=== PATIENT | male | born 1980 | race Caucasian/White ===

== ENCOUNTER 2024-05-27 05:03 | Emergency (ER) | payer OTHER, SELFPAY ==
--- OUTSIDE RECORDS SUMMARY | 2024-05-27 05:05 | XMS_ITS | Clinical Summary ---
Author Organization [facility] Address [address] [place] [address] Care Team Providers Care Corporate Director Of Human Resources Name Role Phone Unavailable Primary Care Provider Unavailabl e Social History Tobacco Use Types Packs/Day Years Used Date Smoking Tobacco: Never Assessed Sex and Gender Information Value Date Recorded Sex Assigned at Not on file Legal Sex Male 5:59 PM CDT Gender Identity Not on file Sexual Orientation Not on file Plan of Treatment Health Maintenance Due Date Last Done Comments Annual Physical 10/22/1982 Hepatitis C 10/22/1997 DTaP, Tdap and Td Vaccines ( 1 - Tdap) 10/22/1998 Hepatitis B Vaccines (1 of 3 - 19+ 3-dose series) 10/22/1998 COVID-19 Vaccine (2023-2 5 season) 2023 Influenza Adult (#1) 2023 HPV Vaccines Aged Out No longer eligi ble based on patient's age to complete this topic Meningococcal B Vaccine Aged Out No l onger eligible based on patient's age to complete this topic Meningococcal Vaccine Aged Out No adelaida jin eligible based on patient's age to complete this topic Pneumococcal Vaccine: Pediat rics (0 to 5 Years) and At-Risk Patients (6 to 64 Years) Aged Out No longer eligible b ased on patient's age to complete this topic RSV Immunizations Under 20 Months Aged Out No longer eligible based on patient's age to complete this topic
--- OUTSIDE RECORDS SUMMARY | 2024-05-27 05:05 | XMS_ITS | Referral Summary ---
Author Organization [facility] Address [address] [place] [address] Care Team Providers Care Advertising Editor Name Role Phone Cori Ashton PA-C Primary Care Provider [phone] Source Comments [facility],non-owned Affiliates and Associated Physician Practices is amultiple site organization consisting of ambulatory clinics and hospital sitesin [place], [place], [place] and [place]. This disclosure is being madepursuant to the Care Everywhere program and may not contain all information available regarding this patient. Last updated 17.[facility] Allergies No known active allergies Medications * Be aware that medications may not be up to date on this document. Alwaysverify current medications with the patient. Medication Sig Dispensed Refills Start Date End Date Status ibuprofen (MOTRIN) 600 MG tablet Take 1 tablet by mouth every 6 hours as needed for Pain 20 tablet 05/05/2018 Active Social History Tobacco Use Types Packs/Day Years Used Date Smoking Tobacco: Never Smokeless Tobacco: Never Alcohol Use Standard Drinks/Week Comments No 0 (1 standard drink = 0.6 oz pur e alcohol) Sex and Gender Information Value Date Recorded Sex Assigned at Not on file Gender Identity Not on file Sexual Orientation Not on file Last Filed Vital Signs Vital Sign Reading Time Taken Comments Blood Pressure 103/60 05/05/2018 7:13 PM SURGICAL RESIDENT Pulse 73 05/05/2018 7:13 PM SURGICAL RESIDENT Temperature 36.7 C (98.1 F) 05/05/2018 3:37 PM SURGICAL RESIDENT Respiratory Rate 18 05/05/2018 7:13 PM SURGICAL RESIDENT Oxygen Saturation 97% 05/05/2018 7:13 PM SURGICAL RESIDENT Inhaled Oxygen Concentration - - Weight 65.8 kg (145 lb) 05/05/2018 3:37 PM SURGICAL RESIDENT Height 170.2 cm (5' 7 ) 05/05/2018 3:37 PM SURGICAL RESIDENT Body Mass Index 22.71 05/05/2018 3:37 PM SURGICAL RESIDENT Plan of Treatment Not on file Care Teams Advertising Editor Relationship Specialty Start Date End Date Cori Ashton, PA-C PCP - General Physician Jeeper Operator 05/05/18
--- OUTSIDE RECORDS SUMMARY | 2024-05-27 05:05 | XMS_ITS | Clinical Summary ---
Author Organization [facility] Address [address] [place] [address] Care Team Providers Care Painter Foreman Name Role Phone Cori Ashton PA-C Primary Care Provider [phone] Source Comments [facility],non-owned Affiliates and Associated Physician Practices is amultiple site organization consisting of ambulatory clinics and hospital sitesin [place], [place], [place] and [place]. This disclosure is being madepursuant to the Care Everywhere program and may not contain all information available regarding this patient. Last updated 17.[facility] Allergies No known active allergies Medications * [...] Comments Blood Pressure 103/60 05/05/2018 7:13 PM VAULT CLERK Pulse 73 05/05/2018 7:13 PM VAULT CLERK Temperature 36.7 C (98.1 F) 05/05/2018 3:37 PM VAULT CLERK Respiratory Rate 18 05/05/2018 7:13 PM VAULT CLERK Oxygen Saturation 97% 05/05/2018 7:13 PM VAULT CLERK Inhaled Oxygen Concentration - - Weight 65.8 kg (145 lb) 05/05/2018 3:37 PM VAULT CLERK Height 170.2 cm (5' 7 ) 05/05/2018 3:37 PM VAULT CLERK Body Mass Index 22.71 05/05/2018 3:37 PM VAULT CLERK Plan of Treatment Health Maintenance Due Date Last Done Comments LIPID TESTING 1979 HIV SCREENING 10/22/1994 HEPATITIS C SCREENING 10/18/1997 DTAP/TDAP/TD VACCINES (1 - Tdap) 10/22/1998 HEPATITIS B VACCINE (1 of 3 - 19+ 3-dose series) 10/22/1998 COVID-19 VACCINE (1 - 2023-2 5 season) 2023 INFLUENZA VACCINE (#1) 2023 DEPRESSION SCREENING 03/25/2024 ZOSTER VACCINE (1 of 2) 10/22/2029 HIB VACCINE Aged Out No longer eligi ble based on patient's age to complete this topic HPV VACCINE Aged Out No longer eligi ble based on patient's age to complete this topic MENINGOCOCCAL (Group B) VACCINE Aged Out No longer eligible based on patient's age to complete this topic MENINGOCOCCAL VACCINE Aged Out No adelaida jin eligible based on patient's age to complete this topic PNEUMOCOCCAL VACCINE Aged Out No long er eligible based on patient's age to complete this topic Care Teams Painter Foreman Relationship Specialty Start Date End Date Cori Ashton PARubioC PCP - General Physician Roller 05/05/18
--- OUTSIDE RECORDS SUMMARY | 2024-05-27 05:05 | XMS_ITS | Clinical Summary ---
Author Organization [facility] [address] [facility] Address [address] [place] [address] Care Team Providers Care Test Fixture Designer Name Role Phone Cori Ashton Unavailable [phone] Cori Ashton Primary Care Provider [phone] Allergies No known active allergies Medications FIBER, DEXTRIN, ORAL Rx: Fiber - Tablet Active ibuprofen (ADVIL,MOTRIN) 600 mg tablet Take 1 tablet (600 mg total) by mouth every 6 (six) hours as needed 05/05/2018 Active whey protein isolate, bulk, 100 % powder Active calcium caseinate-whey 7.5 gram packet Take by mouth Active docosahexaenoic acid/epa (FISH OIL ORAL) Take by mouth Active UNABLE TO FIND Take by mouth daily Beet Root Extract Active DULoxetine DR (CYMBALTA) 30 mg capsuleIndicati ons:Moderate episode of recurrent major depressive disorder (HCC) Take 1 capsule (30 mg total) by mouth daily 90 capsule 3 04/08/2024 Active linaCLOtide (Linzess) 145 mcg capsule Take 1 capsule (145 mcg total) by mouth daily 90 capsule 3 04/08/2024 Active omeprazole (PriLOSEC) 40 mg capsule Take 1 capsule (40 mg total) by mouth daily 90 capsule 3 04/08/2024 Active Active Problems Problem Noted Date Diagnosed Date Diabetes mellitus screening 04/13/2024 Assessment & Plan (04/13/2024 10:12 PM [facility]): Check labs Colon cancer screening 04/13/2024 Assessment & Plan (04/13/2024 10:12 PM [facility]): Patient is due for colon cancer screening. Will make referral for colonoscopy. Prefers Dr. Stiles at [facility] Prostate cancer screening 04/13/2024 Assessment & Plan (04/13/2024 10:12 PM [facility]): Check labs BMI 24.0-24.9, adult 04/07/2023 Assessment & Plan (04/08/2024 3:28 PM [facility] [employer]): Weight/BMI is in healthy range. Continue healthy lifestyle to maintain. Assessment & Plan (04/07/2023 9:34 PM [facility] [employer] [facility]): Weight/BMI is in healthy range. Continue healthy lifestyle to maintain. Screening for diabetes mellitus 09/26/2021 Assessment & Plan (04/07/2023 9:35 PM [facility]): Check labs Assessment & Plan (09/26/2021 9:45 AM CDT): Check labs Fatigue 09/24/2020 Assessment & Plan (04/13/2024 10:11 PM [facility] [employer]): Probably multifactorial. Check labs and followup to re-evaluate Assessment & Plan (04/07/2023 9:35 PM [employer] [employer]): Probably multifactorial. Check labs and followup to re-evaluate Assessment & Plan (09/26/2021 9:43 AM CDT): Probably multifactorial. Check labs and followup to re-evaluate Assessment & Plan (09/24/2020 10:50 AM CDT): Probably multifactorial. Check labs and followup to re-evaluate Annual physical exam 09/22/2020 Assessment & Plan (04/13/2024 10:11 PM [facility] [employer]): Encouraged healthy lifestyle, good nutrition and exercise. Encouraged Calcium and Vitamin D and weight bearing exercise for bone health. Reviewed immunizations Reviewed age appropirate screenings. Assessment & Plan (04/07/2023 9:34 PM [facility]): Encouraged healthy lifestyle, good nutrition and exercise. Encouraged Calcium and Vitamin D and weight bearing exercise for bone health. Reviewed immunizations Reviewed age appropirate screenings. Assessment & Plan (09/26/2021 9:41 AM CDT): Encouraged healthy lifestyle, good nutrition and exercise. Encouraged Calcium and Vitamin D and weight bearing exercise for bone health. Reviewed immunizations Reviewed age appropirate screenings. Assessment & Plan (09/24/2020 10:50 AM CDT): Encouraged healthy lifestyle, good nutrition and exercise. Encouraged Calcium and Vitamin D and weight bearing exercise for bone health. Reviewed immunizations Reviewed age appropirate screenings. Migraine without aura and wi thout status migrainosus, not intractable 01/07/2020 Assessment & Plan (01/07/2020 11:00 AM CDT): Patient's cites an antecedent history of episodic headache with clinical historical features suggesting migraine without aura. His MRI demonstrates punctate T2 changes consistent with sterile inflammation associated with a migraine history. Acute non-recurrent ethmoidal sinusitis 12/21/19 20 Assessment & Plan (12/21/2019 9:04 AM CDT): Visualized on MRI of head. Will start on amoxicillin x7 days. Primary insomnia 12/11/2019 Assessment & Plan (12/11/2019 8:34 AM CDT): I believe the patient has a reactive insomnia secondary to his mother's passing. I also recommended that he continue to exercise and decrease his caffeine intake. I also recommended that he not eat after he gets home from work so that he does not have a full stomach when he tries to sleep. I also recommended cognitive behavioral therapy for insomnia. I will hold off on a sleep study at this time and he will return to the office in 6 weeks. If the insomnia and does not improve, I would consider a sleep study at that time. Exertional headache 11/23/2019 Assessment & Plan (02/03/2020 9:50 AM [facility] [employer] [facility]): Patient has undergone MR angiogram of the brain demonstrating no aneurysm. He has been doing an alternate workup program not involving lifting heavy weights hand he has noticed that his exertional headache has resolved. With normal neuroimaging and normal serial neurological examination, observation from the neurological standpoint would be appropriate. If he does choose to resume heavy weight lifting and develops exertional headache, I have suggested he could try using an anti-inflammatory such as naproxen or ibuprofen about 30 minutes before his exercise regiment begins. I will see him back in the office from the neurological standpoint on an as- needed basis. Assessment & Plan (01/07/2020 10:59 AM CDT): Patient describes a 3 month history of exertional headache typically following heavy weightlifting when he develops of brief 5 minutes sharp head pain in the right temporal. His neurologic examination is normal. He does have an antecedent history of migraine without aura but describes these headaches as being different and only associated with heavy weight lifting. I will obtain an MR angiogram of the brain to exclude aneurysm given the relationship of head pain to exertion. I will see him back thereafter. Assessment & Plan (12/21/2019 9:04 AM CDT): We reviewed MRI of head. He has appointment pending with neurology that he will keep. He was advised in the meantime to decrease caffeine. Assessment & Plan (11/23/2019 9:05 AM CDT): Advised him to cut back on caffeine, stop energy drinks Advised him to start monitoring water intake as he may be deficient Advised him to stop weight lifting for the time being as this is seemingly causing the headaches Episode of recurrent major depressive disorder 0 11/23/2019 Assessment & Plan (04/13/2024 10:11 PM [facility]): Depression symptoms are stable with the Cymbalta. Continue 30 mg daily Assessment & Plan (04/07/2023 9:34 PM [facility]): Depression stable with Cymbalta 30 Assessment & Plan (09/24/2020 10:49 AM CDT): Stable with the Cymbalta Assessment & Plan (12/21/2019 9:05 AM CDT): Add Cymbalta daily. Advised not stopping abruptly. Advised calling or reporting the ER if having suicidal or homicidal ideations. Assessment & Plan (11/23/2019 9:04 AM CDT): Discontinue zoloft as he isn't taking it Declines counseling/psychiatry referral at this time Add wellbutrin every day, advised not stopping abruptly. Advised him to report to er if having s/h ideations. F/u in 4w, sooner as needed Weight loss 11/23/2019 Assessment & Plan (11/23/2019 9:06 AM CDT): Encouraged continued healthy eating and exercise, however we discussed the obsessiveness with this as well. Encouraged and advised referral to mill set up and psychologist as it is obsessive. He declines at this time. Sleep apnea 11/23/2019 Assessment & Plan (12/21/2019 9:04 AM CDT): He will work on cutting back on caffeine. He will keep appointment with Dr. Aguillon as planned Assessment & Plan (11/23/2019 9:06 AM CDT): Will refer for repeat testing Kidney stone 11/08/2018 Assessment & Plan (11/08/2018 8:53 PM CDT): Increase fluids. Limit caffeine. Limit excessive amounts of protein Will monitor to see if sxs resolve/passes stones. If sxs persist, may consider Urology referral. Need for referral to nutritional services 2018 Assessment & Plan (11/15/2018 11:23 PM CDT): Discussed using a registered dietitian. Reviewed with patient's that a lot of times the registered dietitian to the hospital or more comfortable and experienced with diabetes and chronic health concerns where is he may benefit from working with the registered dietitian who is more sports or lifting background. Provided the names of some beamster in the [place] area so that he can call and follow up with them to determine which 1 May be best for him. Acute right-sided low back pain without sciatica 2018 Assessment & Plan (11/02/2018 6:43 PM CDT): Send urine for culture. Reviewed s/s kidney stones. If persists may need KUB vs PT Check kidney function as increasing protein. Mixed obsessional thoughts and acts 05/20/2017 Chronic idiopathic constipation 01/31/2016 Assessment & Plan (04/13/2024 10:13 PM [facility]): Persistent constipation symptoms. He has tried increasing fiber both by food and supplement, increasing water, exercise, stool softeners like Colace, MiraLax, flaxseed without significant results. Has had good results with the Linzess 145 mcg and would benefit continuing. He has been on them since 2019. Refills sent to pharmacy Assessment & Plan (09/24/2020 10:49 AM CDT): Encouraged to take the linzess daily Continue fiber, exercise and fluids Assessment & Plan (12/03/2018 10:38 AM CDT): Pt is doing fiber, exercise and fiber supplement. Thinks it may be due to the increased creatinine supplement and protein powder He made an appointment with [facility]/Juan David Cortes RD in [place] in a week. He will be able to discuss his caloric intake and the types of food he is eating. He is going to increase his more complex carbs including brown rice and sweet potatoes and I am hoping that speaking with the dietitian will help guide his choices not only with his food but his supplements. He may continue the Linzess at this point and will follow up in a few months or sooner if he has increased symptoms. HLD (hyperlipidemia) 07/11/2015 Assessment & Plan (04/13/2024 10:11 PM [facility]): Encouraged patient to follow low fat/low chol diet like the Mediterranean diet. Increase good fats in the diet. Increase exercise. Monitor labs as needed. Assessment & Plan (04/07/2023 9:35 PM [facility]): Encouraged patient to follow low fat/low chol diet like the Mediterranean diet. Increase good fats in the diet. Increase exercise. Monitor labs as needed. Much improved with weight loss. Recheck labs Assessment & Plan (09/26/2021 9:41 AM CDT): Encouraged patient to follow low fat/low chol diet like the Mediterranean diet. Increase good fats in the diet. Increase exercise. Monitor labs as needed. Continue with diet control Speech abnormality 07/11/2015 Vitamin D deficiency 07/11/2015 Assessment & Plan (04/13/2024 10:11 PM [facility]): Supplement Assessment & Plan (04/07/2023 9:35 PM [facility]): Supplement Anxiety 06/23/2015 GERD (gastroesophageal reflux disease) 6 Assessment & Plan (04/13/2024 10:14 PM [facility]): Continue PPI p.r.n. Resolved Problems Problem Noted Date Diagnosed Date Resolved Date BMI 26.0-26.9,adult 09/23/2020 04/07/19 24 Assessment & Plan (09/26/2021 9:42 AM CDT): Weight/BMI is in healthy range. Continue healthy lifestyle to maintain. Assessment & Plan (09/23/2020 11:07 AM CDT): Weight/BMI is in healthy range. Continue healthy lifestyle to maintain. BMI 27.0-27.9,adult 11/23/2019 09/24/19 21 Assessment & Plan (11/23/2019 8:04 AM CDT): Obesity is unchanged. Discussed the patient's BMI. The BMI is above average. BMI management plan is completed. BMI Follow-up includes: nutrition counseling, exercise counseling and education provided. Positive depression screening 11/23/2019 09/24/2020 Assessment & Plan (11/23/2019 9:04 AM CDT): Discontinue zoloft as he isn't taking it Declines counseling/psychiatry referral at this time Add wellbutrin every day, advised not stopping abruptly. Advised him to report to er if having s/h ideations. F/u in 4w, sooner as needed BMI 24.0-24.9, adult 2018 021 Assessment & Plan (12/03/2018 8:13 AM CDT): Weight/BMI is in healthy range. Continue healthy lifestyle to maintain. Assessment & Plan (11/03/2018 9:13 AM CDT): Weight/BMI is in healthy range. Continue healthy lifestyle to maintain. Assessment & Plan (2018 1:14 PM CDT): Weight/BMI is in healthy range. Continue healthy lifestyle to maintain. Metabolic syndrome 07/11/2015 2 Other abnormal glucose 07/11/201509/26 Depression 06/23/2015 09/24/2020 Obesity 06/23/2015 09/26/2021 Encounters Date Type Department Care Team Description 04/08/2024 3:30 PM [facility] Office Visit [facility] [address] [address] Cori Ashton PA Annual physical exam (Primary Dx); Chronic idiopathic constipation; Gastroesophageal reflux disease without esophagitis; Moderate episode of recurrent major depressive disorder (HCC); Mixed hyperlipidemia; Prostate cancer screening; Colon cancer screening; Vitamin D deficiency; Fatigue, unspecified type; Diabetes mellitus screening; BMI 24.0-24.9, adult from Last 3 Months Immunizations Immunization Administration Dates Next Due Influenza, Quadrivalent, Spl it, Preservative Free, Intramuscular 01/31/2016 Influenza, Unspecified 04/03/2023(Deferr ed: Patient Refused),07/23/2021(Deferred: Patient Refused),03/25/2021(Deferred: Patient Refused) Pfizer SARS-CoV-2 Monovalent Vaccination (12+ Yrs) PURPLE 01/29/2021,07/09/2020,06/18/2020 Surgical History Surgery Date Site/Laterality Comments HERNIA REPAIR Medical History Medical History Date Comments Depression Family History Medical History Relation Name Comments No Known Problems Brother 1 No Known Problems Brother 2 Diabetes Father Hypertension Father Mental illness Father Prostate cancer Father Alcohol abuse Mother Diabetes Mother Heart disease Mother Multiple sclerosis Sister Relation Name Status Comments Brother 1 Alive Brother 2 Alive Father Alive Mother Sister Alive Social History Tobacco Use Types Packs/Day Years Used Date Smoking Tobacco: Former Cigarettes Smokeless Tobacco: Never Alcohol Use Standard Drinks/Week Comments Yes 0 (1 standard drink = 0.6 oz pur e alcohol) AUDIT-C Answer Date Recorded Q1: How often do you have a drink containing alc ohol? 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 Not on file Not on file Obstetrics History Last Filed Vital Signs Vital Sign Reading Time Taken Comments Blood Pressure 126/80 04/08/2024 3:25 PM [facility] Pulse 64 04/08/2024 3:25 PM [facility] Temperature 36.3 C (97.4 F) 04/08/2024 3:25 PM [facility] Respiratory Rate 20 12/11/2019 8:01 AM CDT Oxygen Saturation 98% 04/08/2024 3:25 PM [facility] [employer] [facility] Inhaled Oxygen Concentration - - Weight 70.7 kg (155 lb 12.8 oz) 04/08/2024 3:25 PM [facility] Height 170.2 cm (5' 7 ) 04/08/2024 3:25 PM [facility] Body Mass Index 24.4 04/08/2024 3:25 PM [facility] Plan of Treatment Health Maintenance Due Date Last Done Comments Hepatitis C Screening 1979 Prostate Cancer Screening-PSA 1979 DTaP/Tdap/Td Vaccine (1 - Tdap) 10/22/1990 Varicella Vaccines (1 of 2 - 13+ 2-dose series) 10/22/1992 Hepatitis B Screening 10/22/1997 Covid-19 Vaccine ( season) 2023 01/29/2021, 07/09/2020, 06/18/2020 Influenza Vaccine (#1) 2023 01/31/2016 Depression Screening 04/08/2025 04/08/2024, 04/03/2023, 04/03/2023, Additional history exists Regular Well Visit/Exam 18-64 04/08/2025 04/08/2024, 04/03/2023, 09/26/2021, Additional history exists HPV Vaccines Aged Out No longer eligi ble based on patient's age to complete this topic Pneumococcal vaccine <65 Aged Out No longer eligible based on patient's age to complete this topic Insurance [facility] [employer] [place] Care Teams Test Fixture Designer Relationship Specialty Start Date End Date Cori Ashton PA [address] [place] [address] PCP - General Internal Medicine 05/03/20 Cori Ashton PA [address] [place] [address] Internal Medicine 12/17/19
--- OUTSIDE RECORDS SUMMARY | 2024-05-27 05:05 | XMS_ITS | CONTINUITY OF CARE DOCUMENT ---
Author Name donn pop Address Unknown Organization [facility] Address [address] [place] [address] [address] [place] [address] Phone [phone] Care Team Providers Care Electronic Bench Technician Name Role Phone TRISTON MUHAMMAD, LUKASZ Macias Unavailable INSURANCE PROVIDERS Payer name Policy type / Coverage type Guille red alliance party ID [id number] PPO Other [id number]
--- OUTSIDE RECORDS SUMMARY | 2024-05-27 05:05 | XMS_ITS | Referral Summary ---
Author Organization [facility] [address] [facility] Address [address] [place] [address] Care Team Providers Care Biochemistry Professor Name Role Phone Cori Ashton Unavailable [phone] Cori Ashton Primary Care Provider [phone] Encounters Date Type Department Care Team Description 04/08/2024 3:30 PM FIRE LIEUTENANT Office Visit [facility] Family Medicine [address] [facility] [address] [place] [address] Cori Ashton PA Annual physical exam (Primary Dx); Chronic idiopathic constipation; Gastroesophageal reflux disease without esophagitis; Moderate episode of recurrent major depressive disorder (HCC); Mixed hyperlipidemia; Prostate cancer screening; Colon cancer screening; Vitamin D deficiency; Fatigue, unspecified type; Diabetes mellitus screening; BMI 24.0-24.9, adult from Last 3 Months Allergies No known active allergies Medications FIBER, [...] 04/13/2024 Assessment & Plan (04/13/2024 10:12 PM FIRE LIEUTENANT): Check labs Colon cancer screening 04/13/2024 Assessment & Plan (04/13/2024 10:12 PM FIRE LIEUTENANT): Patient is due for colon cancer screening. Will make referral for colonoscopy. Prefers Dr. Stiles at [facility] Prostate cancer screening 04/13/2024 Assessment & Plan (04/13/2024 10:12 PM FIRE LIEUTENANT): Check labs BMI 24.0-24.9, adult 04/07/2023 Assessment & Plan (04/08/2024 3:28 PM FIRE LIEUTENANT): Weight/BMI is in healthy range. Continue healthy lifestyle to maintain. Assessment & Plan (04/07/2023 9:34 PM FIRE LIEUTENANT): Weight/BMI is in healthy range. Continue healthy lifestyle to maintain. Screening for diabetes mellitus 09/26/2021 Assessment & Plan (04/07/2023 9:35 PM FIRE LIEUTENANT): Check labs Assessment & Plan (09/26/2021 9:45 AM CDT): Check labs Fatigue 09/24/2020 Assessment & Plan (04/13/2024 10:11 PM FIRE LIEUTENANT): Probably multifactorial. Check labs and followup to re-evaluate Assessment & Plan (04/07/2023 9:35 PM FIRE LIEUTENANT): Probably multifactorial. Check labs and followup to re-evaluate Assessment & Plan (09/26/2021 9:43 AM CDT): Probably multifactorial. Check labs and followup to re-evaluate Assessment & Plan (09/24/2020 10:50 AM CDT): Probably multifactorial. Check labs and followup to re-evaluate Annual physical exam 09/22/2020 Assessment & Plan (04/13/2024 10:11 PM FIRE LIEUTENANT): Encouraged healthy lifestyle, good nutrition and exercise. Encouraged Calcium and Vitamin D and weight bearing exercise for bone health. Reviewed immunizations Reviewed age appropirate screenings. Assessment & Plan (04/07/2023 9:34 PM FIRE LIEUTENANT): Encouraged healthy lifestyle, good nutrition and exercise. [...] migraine history. Acute non-recurrent ethmoidal sinusitis 12/21/19 Assessment & Plan (12/21/2019 9:04 AM CDT): [...] 11/23/2019 Assessment & Plan (02/03/2020 9:50 AM FIRE LIEUTENANT): Patient has undergone MR angiogram of the [...] 11/23/2019 Assessment & Plan (04/13/2024 10:11 PM FIRE LIEUTENANT): Depression symptoms are stable with the Cymbalta. Continue 30 mg daily Assessment & Plan (04/07/2023 9:34 PM FIRE LIEUTENANT): Depression stable with Cymbalta 30 Assessment & [...] as well. Encouraged and advised referral to preparator and psychologist as it is obsessive. He [...] lifting background. Provided the names of some dock builder in the [place] area so that he can call and [...] 01/31/2016 Assessment & Plan (04/13/2024 10:13 PM FIRE LIEUTENANT): Persistent constipation symptoms. He has tried increasing [...] with [facility]/Juan David [address]es [address] in [place] in a week. He will be able [...] 07/11/2015 Assessment & Plan (04/13/2024 10:11 PM FIRE LIEUTENANT): Encouraged patient to follow low fat/low chol diet like the Mediterranean diet. Increase good fats in the diet. Increase exercise. Monitor labs as needed. Assessment & Plan (04/07/2023 9:35 PM FIRE LIEUTENANT): Encouraged patient to follow low fat/low chol [...] 07/11/2015 Assessment & Plan (04/13/2024 10:11 PM FIRE LIEUTENANT): Supplement Assessment & Plan (04/07/2023 9:35 PM FIRE LIEUTENANT): Supplement Anxiety 06/23/2015 GERD (gastroesophageal reflux disease) 6 Assessment & Plan (04/13/2024 10:14 PM FIRE LIEUTENANT): Continue PPI p.r.n. Resolved Problems Problem Noted [...] 07/11/201509/26 Depression 06/23/2015 09/24/2020 Obesity 06/23/2015 09/26/2021 Immunizations Immunization Administration Dates Next Due Influenza, Quadrivalent, Spl it, Preservative Free, Intramuscular 01/31/2016 Influenza, Unspecified 04/03/2023(Deferr ed: Patient Refused),07/23/2021(Deferred: Patient Refused),03/25/2021(Deferred: Patient Refused) Pfizer SARS-CoV-2 Monovalent Vaccination (12+ Yrs) PURPLE 01/29/2021,07/09/2020,06/18/2020 Social History Tobacco Use Types Packs/Day Years [...] on file Legal Sex Male 12:28 AM FIRE LIEUTENANT Gender Identity Not on file Sexual Orientation Not on file 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 Not on file Not on file Last Filed Vital Signs Vital Sign Reading Time Taken Comments Blood Pressure 126/80 04/08/2024 3:25 PM FIRE LIEUTENANT Pulse 64 04/08/2024 3:25 PM FIRE LIEUTENANT Temperature 36.3 C (97.4 F) 04/08/2024 3:25 PM FIRE LIEUTENANT Respiratory Rate 20 12/11/2019 8:01 AM CDT Oxygen Saturation 98% 04/08/2024 3:25 PM FIRE LIEUTENANT Inhaled Oxygen Concentration - - Weight 70.7 kg (155 lb 12.8 oz) 04/08/2024 3:25 PM FIRE LIEUTENANT Height 170.2 cm (5' 7 ) 04/08/2024 3:25 PM FIRE LIEUTENANT Body Mass Index 24.4 04/08/2024 3:25 PM FIRE LIEUTENANT Plan of Treatment Not on file Insurance [facility] [employer] [place] Care Teams Biochemistry Professor Relationship Specialty Start Date End Date Cori Ashton PA [address] [place] [address] PCP - General Internal Medicine 05/03/20 Cori Ashton PA [address] [place], [place] [id number] Internal Medicine 12/17/19
--- OUTSIDE RECORDS SUMMARY | 2024-05-27 05:05 | XMS_ITS | Patient Health Summary ---
Author Organization [facility] Address [address] [place] [address] Care Team Providers Care Oil Changer Name Role Phone Cori Ashton PA-C Primary Care Provider [phone] Note from [facility],non-owned Affiliates and Associated Physician Practices is amultiple site organization consisting of ambulatory clinics and hospital sitesin [place], [place], [place] and [place]. This disclosure is being madepursuant to the Care Everywhere program and may not contain all information available regarding this patient. Last updated 17.[facility] Allergies No known active allergies Medications * Be aware that medications may not be up to date on this document. Alwaysverify current medications with the patient. * ibuprofen (MOTRIN) 600 MG tablet(Started 05/05/2018) Take 1 tablet by mouth every 6 hours as needed for Pain Social History Tobacco Use Types Packs/Day Years [...] Comments Blood Pressure 103/60 05/05/2018 7:13 PM PAPER TUBE CUTTER Pulse 73 05/05/2018 7:13 PM PAPER TUBE CUTTER Temperature 36.7 C (98.1 F) 05/05/2018 3:37 PM PAPER TUBE CUTTER Respiratory Rate 18 05/05/2018 7:13 PM PAPER TUBE CUTTER Oxygen Saturation 97% 05/05/2018 7:13 PM PAPER TUBE CUTTER Inhaled Oxygen Concentration - - Weight 65.8 kg (145 lb) 05/05/2018 3:37 PM PAPER TUBE CUTTER Height 170.2 cm (5' 7 ) 05/05/2018 3:37 PM PAPER TUBE CUTTER Body Mass Index 22.71 05/05/2018 3:37 PM PAPER TUBE CUTTER Procedures * CARDIAC EKG ORDER(Performed 06/12/2018) * EKG 12-LEAD(Performed 05/05/2018) Performed for SOB (shortness of breath) * INFLUENZA A+B PCR(Performed 05/05/2018) * XR CHEST 2VW(Performed 05/05/2018) Performed for SOB (shortness of breath) Results * CARDIAC EKG ORDER (06/12/2018 11:29 AM CDT) Narrative 06/12/2018 11:29 AM CDT Ordered by an unspecified provider. Scanned Document CARDIAC SERVICES ORD ERABLES * EKG 12-LEAD (05/05/2018 7:05 PM PAPER TUBE CUTTER) Ventricular Rate 67 BPM [facility] Atrial Rate 67 B[facility] P-R Interval 144 ms [facility] QRS Duration ms 106 ms [facility] Q-T Interval ms 396 ms [facility] MUSE QTC Calculation (Bezet) 418 ms SL MUSE Calculated P [place] 73 degrees [facility] Calculated R [place] 83 degrees [facility] Calculated T [place] 78 degrees [facility] Interpretation EKG NORMAL SINUS RHYTHM NORMAL ECG NO PREVIOUS ECGS AVAILABLE Confirmed by MD Margarita, Ali ([id number]), editor in chief DEDRICK STOVER ([id number]) on 05/22/2018 12:18:31 PM [facility] MUSE 05/05/2018 7:05 PM PAPER TUBE CUTTER 05/22/2018 12:18 PM PAPER TUBE CUTTER Allison Rubalcava MD ECG ORDERABLES [facility] MUSE * INFLUENZA A+B PCR (05/05/2018 4:27 PM PAPER TUBE CUTTER) Influenza A Rapid [place] Negative Negative 05/05/2018 4:59 PM PAPER TUBE CUTTER [facility] Influenza B [place] Rapid Negative Negative 05/05/2018 4:59 PM PAPER TUBE CUTTER [facility] Microbiology SPECIMEN FROM NASOPHARYNGEAL STRUCTURE / Unknown Collection / Unknown 05/05/2018 4:27 PM PAPER TUBE CUTTER 05/05/2018 4:30 PM PAPER TUBE CUTTER Narrative [facility] - 05/05/2018 4:59 PM PAPER TUBE CUTTER Assay performed by Nucleic Acid Amplification. Results do not exclude the possibility of a mixed viral infection. NOTE: Detecting and identifying specific viral nucleic acids from individuals exhibiting signs and symptoms of respiratory infection aids in the diagnosis of respiratory infection, if used in conjunction with other clinical and laboratory findings. The results of this test should not be used as the sole basis for diagnosis, treatment, or patient management decisions. [facility] - MICROBIOLO GY ORDERABLES [address] [phone] * XR CHEST 2VW (05/05/2018 3:54 PM PAPER TUBE CUTTER) Anatomical Region Laterality Modality Chest Radiographic Michelle ging 05/05/2018 4:09 PM PAPER TUBE CUTTER Impressions 05/05/2018 4:11 PM PAPER TUBE CUTTER IMPRESSION: No acute pulmonary process. This report was electronically signed by VA ALBERTO M.D. on 05/05/2018 4:11 PM . Narrative 05/05/2018 4:11 PM PAPER TUBE CUTTER Exam: XR CHEST 2VW Date: 05/05/2018 3:54 PM History: sob, cough Comparison: None FINDINGS: There is no pulmonary consolidation, pleural effusion, or pneumothorax. The heart size and mediastinal contours are normal. There is no acute osseous abnormality. Procedure Note Va Alberto MD - 05/05/2018 Exam: XR CHEST 2VW Date: 05/05/2018 3:54 PM History: sob, cough Comparison: None FINDINGS: There is no pulmonary consolidation, pleural effusion, or pneumothorax. The heart size and mediastinal contours are normal. There is no acute osseous abnormality. IMPRESSION: No acute pulmonary process. This report was electronically signed by VA ALBERTO M.D. on 05/05/2018 4:11 PM . [facility] NG ORDERABLES Care Teams Oil Changer Relationship Specialty Start Date End Date Cori Ashton PA-C PCP - General Physician Occasional Babysitter 05/05/18
[2024-05-27 05:06] VITALS: BP 114/64; PULSE 62; RESP 20; TEMP 36.7; O2SAT 100
[2024-05-27 07:11] VITALS: BP 105/64; PULSE 63; RESP 18; O2SAT 98
--- NOTE | 2024-05-27 07:57 | ED_ITS ---
HPI - General Adult General Chief complaint: Ear Stated complaint: ear bud stuck in ear Time Seen by Provider: 05/27/24 07:38 History of Present Illness HPI narrative: 43-year-old male present to the emergency department for evaluation for foreign body in his left ear. Patient states that approximately 5:00 a.[address]. the river covering for 1 of his ear phones got stuck in his left ear. Related Data Allergies Allergy/AdvReac Type Severity Reaction Status Date / Time No Known Allergies Allergy Verified 05/27/24 05:09 Review of Systems Review of Systems: All systems reviewed & are unremarkable except as noted in HPI and below Exam Narrative: APPEARANCE: Well appearing, no pain, no distress, well-nourished. HEAD: normocephalic, atraumatic. EYES: PERRLA/EOMI, conjunctivae clear. NOSE: Normal no drainage EARS: Foreign body and left ear was removed using alligator forceps. Normal appearing TM post removal THROAT: Pharynx clear, no exudate. NECK: Supple. No adenopathy, no masses. RESPIRATORY: Airway patent, respirations nonlabored. Clear to auscultation [place] aterally, no rales, rhonchi, wheezing. CARDIOVASCULAR: Regular rate and rhythm without murmurs rubs or gallops. ABDOMINAL: Soft, nontender, nondistended, normal bowel sounds MUSCULOSKELETAL: Moves all extremities. Strength/ROM intact, No edema, No calf tenderness. NEURO: Alert. Cranial nerves II through XII intact. Good gait. Good coordination SKIN: Warm, dry. Normal Color Course Vital Signs Vital signs: Vital Signs Temperature 98.0 F 05/27/24 05:06 Pulse Rate 62 05/27/24 05:06 Respiratory Rate 20 05/27/24 05:06 Blood Pressure 114/64 05/27/24 05:06 Pulse Oximetry 100 05/27/24 05:06 Oxygen Delivery Room Air 05/27/24 05:06 Temperature 98.0 F 05/27/24 05:06 Pulse Rate 63 05/27/24 07:11 Respiratory Rate 18 05/27/24 07:11 Blood Pressure 105/64 05/27/24 07:11 Pulse Oximetry 98 05/27/24 07:11 Oxygen Delivery Room Air 05/27/24 05:06 Procedures FB Removal Ear Foreign Body #1: Foreign Body Removal Date: 05/27/24 Foreign Body Removal Time: 07:59 Location: ear canal (L) Foreign Body Suspected: other plastic TM intact pre-procedure: unable to visualize Foreign Body Removed: yes Foreign Body Removal Technique: forceps Tympanic Membrane Intact Post Procedure: Yes Patient Tolerated Procedure: well and no complications Complications: none Medical Decision Making MDM Narrative Medical decision making narrative: [age] old male presents emergency department for evaluation for a foreign body and his left ear. Silicone covering for an ear bud was removed with out complication. TM was visualized post removal procedure and showed no damage. Patient had no complaints. Patient was discharged home. Differential Diagnosis Differential Diagnosis: Tympanic rupture, foreign body Vital Signs Vital Signs: Vital Signs Temperature 98.0 F 05/27/24 05:06 Pulse Rate 62 05/27/24 05:06 Respiratory Rate 20 05/27/24 05:06 Blood Pressure 114/64 05/27/24 05:06 Pulse Oximetry 100 05/27/24 05:06 Oxygen Delivery Room Air 05/27/24 05:06 Temperature 98.0 F 05/27/24 05:06 Pulse Rate 63 05/27/24 07:11 Respiratory Rate 18 05/27/24 07:11 Blood Pressure 105/64 05/27/24 07:11 Pulse Oximetry 98 05/27/24 07:11 Oxygen Delivery Room Air 05/27/24 05:06 Discharge Plan Discharge Clinical Impression: Foreign body in ear Patient Disposition: Home, Self-Care Condition: Stable Instructions: Antibiotic Form, Ear Foreign Body (ED) Additional Instructions: If you have any worsening symptoms please call or return to the emergency department. Have close follow-up with your primary care physician. Patient Language: Estonian Follow-up/Referrals: UNKNOWN,DOCTOR [Primary Care Provider] -
--- OUTSIDE RECORDS SUMMARY | 2024-05-27 08:13 | XMS_ITS | Referral Summary ---
Author Organization [facility] [address] [facility] Address [address] [place] [address] Care Team Providers Care Supervisor Cytology Name Role Phone Cori Ashton Unavailable Cori Ashton Primary Care Provider [phone] Encounters Date Type Department Care Team Description 04/08/2024 3:30 PM STOPPER MAKER Office Visit [facility] Family Medicine [address] [facility] [address] [place] [address] Cori Ashton PA Annual physical [...] 04/13/2024 Assessment & Plan (04/13/2024 10:12 PM STOPPER MAKER): Check labs Colon cancer screening 04/13/2024 Assessment & Plan (04/13/2024 10:12 PM STOPPER MAKER): Patient is due for colon cancer screening. Will make referral for colonoscopy. Prefers Dr. Stiles at [facility] Prostate cancer screening 04/13/2024 Assessment & Plan (04/13/2024 10:12 PM STOPPER MAKER): Check labs BMI 24.0-24.9, adult 04/07/2023 Assessment & Plan (04/08/2024 3:28 PM STOPPER MAKER): Weight/BMI is in healthy range. Continue healthy lifestyle to maintain. Assessment & Plan (04/07/2023 9:34 PM STOPPER MAKER): Weight/BMI is in healthy range. Continue healthy lifestyle to maintain. Screening for diabetes mellitus 09/26/2021 Assessment & Plan (04/07/2023 9:35 PM STOPPER MAKER): Check labs Assessment & Plan (09/26/2021 9:45 AM CDT): Check labs Fatigue 09/24/2020 Assessment & Plan (04/13/2024 10:11 PM STOPPER MAKER): Probably multifactorial. Check labs and followup to re-evaluate Assessment & Plan (04/07/2023 9:35 PM STOPPER MAKER): Probably multifactorial. Check labs and followup to re-evaluate Assessment & Plan (09/26/2021 9:43 AM CDT): Probably multifactorial. Check labs and followup to re-evaluate Assessment & Plan (09/24/2020 10:50 AM CDT): Probably multifactorial. Check labs and followup to re-evaluate Annual physical exam 09/22/2020 Assessment & Plan (04/13/2024 10:11 PM STOPPER MAKER): Encouraged healthy lifestyle, good nutrition and exercise. Encouraged Calcium and Vitamin D and weight bearing exercise for bone health. Reviewed immunizations Reviewed age appropirate screenings. Assessment & Plan (04/07/2023 9:34 PM STOPPER MAKER): Encouraged healthy lifestyle, good nutrition and exercise. [...] 11/23/2019 Assessment & Plan (02/03/2020 9:50 AM STOPPER MAKER): Patient has undergone MR angiogram of the [...] 11/23/2019 Assessment & Plan (04/13/2024 10:11 PM STOPPER MAKER): Depression symptoms are stable with the Cymbalta. Continue 30 mg daily Assessment & Plan (04/07/2023 9:34 PM STOPPER MAKER): Depression stable with Cymbalta 30 Assessment & [...] as well. Encouraged and advised referral to oven dauber and psychologist as it is obsessive. He [...] lifting background. Provided the names of some program management professional in the [place] area so that he can call and [...] 01/31/2016 Assessment & Plan (04/13/2024 10:13 PM STOPPER MAKER): Persistent constipation symptoms. He has tried increasing [...] with [employer]/Juan [address]es [address] in [place] in a week. He will be able [...] 07/11/2015 Assessment & Plan (04/13/2024 10:11 PM STOPPER MAKER): Encouraged patient to follow low fat/low chol diet like the Mediterranean diet. Increase good fats in the diet. Increase exercise. Monitor labs as needed. Assessment & Plan (04/07/2023 9:35 PM STOPPER MAKER): Encouraged patient to follow low fat/low chol [...] 07/11/2015 Assessment & Plan (04/13/2024 10:11 PM STOPPER MAKER): Supplement Assessment & Plan (04/07/2023 9:35 PM STOPPER MAKER): Supplement Anxiety 06/23/2015 GERD (gastroesophageal reflux disease) 6 Assessment & Plan (04/13/2024 10:14 PM STOPPER MAKER): Continue PPI p.r.n. 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 Not on file Not on file Last Filed Vital Signs Vital Sign Reading Time Taken Comments Blood Pressure 126/80 04/08/2024 3:25 PM STOPPER MAKER Pulse 64 04/08/2024 3:25 PM STOPPER MAKER Temperature 36.3 C (97.4 F) 04/08/2024 3:25 PM STOPPER MAKER Respiratory Rate 20 12/11/2019 8:01 AM CDT Oxygen Saturation 98% 04/08/2024 3:25 PM STOPPER MAKER Inhaled Oxygen Concentration - - Weight 70.7 kg (155 lb 12.8 oz) 04/08/2024 3:25 PM STOPPER MAKER Height 170.2 cm (5' 7 ) 04/08/2024 3:25 PM STOPPER MAKER Body Mass Index 24.4 04/08/2024 3:25 PM STOPPER MAKER Plan of Treatment Not on file Insurance [facility] [employer] [place] Care Teams Supervisor Cytology Relationship Specialty Start Date End Date Cori Ashton PA [address] [place] [address] PCP - General Internal Medicine 05/03/20 Cori Ashton PA [address] [place], [place] [id number] Internal Medicine 12/17/19
--- OUTSIDE RECORDS SUMMARY | 2024-05-27 08:13 | XMS_ITS | Patient Health Summary ---
Author Organization [facility] Address [address] [place] [address] Care Team Providers Care Livestock Handler Name Role Phone Cori Ashton PA-C Primary Care Provider [phone] Note from [facility],non-owned Affiliates and Associated Physician Practices is amultiple site organization consisting of ambulatory clinics and hospital sitesin [place], [place] and [place]. This disclosure is being madepursuant to the Care Everywhere program and may not contain all information available regarding this patient. Last updated 17.[facility] Allergies No known active allergies Medications * [...] Comments Blood Pressure 103/60 05/05/2018 7:13 PM CAMPUS ADMINISTRATIVE ASSISTANT Pulse 73 05/05/2018 7:13 PM CAMPUS ADMINISTRATIVE ASSISTANT Temperature 36.7 C (98.1 F) 05/05/2018 3:37 PM CAMPUS ADMINISTRATIVE ASSISTANT Respiratory Rate 18 05/05/2018 7:13 PM CAMPUS ADMINISTRATIVE ASSISTANT Oxygen Saturation 97% 05/05/2018 7:13 PM CAMPUS ADMINISTRATIVE ASSISTANT Inhaled Oxygen Concentration - - Weight 65.8 kg (145 lb) 05/05/2018 3:37 PM CAMPUS ADMINISTRATIVE ASSISTANT Height 170.2 cm (5' 7 ) 05/05/2018 3:37 PM CAMPUS ADMINISTRATIVE ASSISTANT Body Mass Index 22.71 05/05/2018 3:37 PM CAMPUS ADMINISTRATIVE ASSISTANT Procedures * CARDIAC EKG ORDER(Performed 06/12/2018) * EKG 12-LEAD(Performed 05/05/2018) Performed for SOB (shortness of breath) * INFLUENZA A+B PCR(Performed 05/05/2018) * XR CHEST 2VW(Performed 05/05/2018) Performed for SOB (shortness of breath) Results * CARDIAC EKG ORDER (06/12/2018 11:29 AM CDT) Narrative 06/12/2018 11:29 AM CDT Ordered by an unspecified provider. Scanned Document CARDIAC SERVICES ORD ERABLES * EKG 12-LEAD (05/05/2018 7:05 PM CAMPUS ADMINISTRATIVE ASSISTANT) Ventricular Rate 67 BPM [facility] Atrial Rate 67 BPM [facility] P-R Interval 144 ms [facility] QRS Duration ms 106 ms [facility] Q-T Interval ms 396 ms [facility] MUSE QTC Calculation (Bezet) 418 ms SL MUSE Calculated P [place] 73 degrees [facility] MUSE Calculated R [place] 83 degrees [facility] MUSE Calculated T [place] 78 degrees [facility] MUSE Interpretation EKG NORMAL SINUS RHYTHM NORMAL ECG NO PREVIOUS ECGS AVAILABLE Confirmed by MD Margarita, Ali ([id number]), primer expeditor and drier DEDRICK STOVER ([id number]) on 05/22/2018 12:18:31 PM [facility] MUSE 05/05/2018 7:05 PM CAMPUS ADMINISTRATIVE ASSISTANT 05/22/2018 12:18 PM CAMPUS ADMINISTRATIVE ASSISTANT Allison Rubalcava MD ECG ORDERABLES [facility] MUSE * INFLUENZA A+B PCR (05/05/2018 4:27 PM CAMPUS ADMINISTRATIVE ASSISTANT) Influenza A Rapid [place] Negative Negative 05/05/2018 4:59 PM CAMPUS ADMINISTRATIVE ASSISTANT [facility] Influenza B [place] Rapid Negative Negative 05/05/2018 4:59 PM CAMPUS ADMINISTRATIVE ASSISTANT [facility] Microbiology SPECIMEN FROM NASOPHARYNGEAL STRUCTURE / Unknown Collection / Unknown 05/05/2018 4:27 PM CAMPUS ADMINISTRATIVE ASSISTANT 05/05/2018 4:30 PM CAMPUS ADMINISTRATIVE ASSISTANT Narrative [facility] - 05/05/2018 4:59 PM CAMPUS ADMINISTRATIVE ASSISTANT Assay performed by Nucleic Acid Amplification. Results [...] [facility] - MICROBIOLO GY ORDERABLES [address] [phone] * XR CHEST 2VW (05/05/2018 3:54 PM CAMPUS ADMINISTRATIVE ASSISTANT) Anatomical Region Laterality Modality Chest Radiographic Michelle ging 05/05/2018 4:09 PM CAMPUS ADMINISTRATIVE ASSISTANT Impressions 05/05/2018 4:11 PM CAMPUS ADMINISTRATIVE ASSISTANT IMPRESSION: No acute pulmonary process. This report was electronically signed by VA ALBERTO M.D. on 05/05/2018 4:11 PM . Narrative 05/05/2018 4:11 PM CAMPUS ADMINISTRATIVE ASSISTANT Exam: XR CHEST 2VW Date: 05/05/2018 3:54 [...] [facility] NG ORDERABLES Care Teams Livestock Handler Relationship Specialty Start Date End Date Cori Ashton PA-C PCP - General Physician Brass Polisher 05/05/18
--- OUTSIDE RECORDS SUMMARY | 2024-05-27 08:13 | XMS_ITS | Clinical Summary ---
Author Organization [facility] Address [address] [address] Care Team Providers Care Creative Specialist Name Role Phone Cori Ashton PA-C Primary Care Provider [phone] Source Comments [facility],non-owned Affiliates and Associated Physician Practices is amultiple site organization consisting of ambulatory clinics and hospital sitesin [place], [place], [place] and [place]. This disclosure is being madepursuant to the Care Everywhere program and may not contain all information available regarding this patient. Last updated 17.[facility] Allergies No known active allergies Medications * [...] Comments Blood Pressure 103/60 05/05/2018 7:13 PM CLIENT DELIVERY SPECIALIST Pulse 73 05/05/2018 7:13 PM CLIENT DELIVERY SPECIALIST Temperature 36.7 C (98.1 F) 05/05/2018 3:37 PM CLIENT DELIVERY SPECIALIST Respiratory Rate 18 05/05/2018 7:13 PM CLIENT DELIVERY SPECIALIST Oxygen Saturation 97% 05/05/2018 7:13 PM CLIENT DELIVERY SPECIALIST Inhaled Oxygen Concentration - - Weight 65.8 kg (145 lb) 05/05/2018 3:37 PM CLIENT DELIVERY SPECIALIST Height 170.2 cm (5' 7 ) 05/05/2018 3:37 PM CLIENT DELIVERY SPECIALIST Body Mass Index 22.71 05/05/2018 3:37 PM CLIENT DELIVERY SPECIALIST Plan of Treatment Health Maintenance Due Date [...] age to complete this topic Care Teams Creative Specialist Relationship Specialty Start Date End Date Cori Ashton PARubioC PCP - General Physician Weight Tester 05/05/18
--- OUTSIDE RECORDS SUMMARY | 2024-05-27 08:13 | XMS_ITS | Referral Summary ---
Author Organization [email or web address] Address [address] [place] [address] Care Team Providers Care Medical Coding Specialist Name Role Phone Cori Ashton PA-C Primary Care Provider [phone] Source Comments [email or web address],non-owned Affiliates and Associated Physician Practices is amultiple site organization consisting of ambulatory clinics and hospital sitesin [place], [place], [place] and [place]. This disclosure is being madepursuant to the Care Everywhere program and may not contain all information available regarding this patient. Last updated 17.[email or web address] Allergies No known active allergies Medications * [...] Comments Blood Pressure 103/60 05/05/2018 7:13 PM LOG SCALER Pulse 73 05/05/2018 7:13 PM LOG SCALER Temperature 36.7 C (98.1 F) 05/05/2018 3:37 PM LOG SCALER Respiratory Rate 18 05/05/2018 7:13 PM LOG SCALER Oxygen Saturation 97% 05/05/2018 7:13 PM LOG SCALER Inhaled Oxygen Concentration - - Weight 65.8 kg (145 lb) 05/05/2018 3:37 PM LOG SCALER Height 170.2 cm (5' 7 ) 05/05/2018 3:37 PM LOG SCALER Body Mass Index 22.71 05/05/2018 3:37 PM LOG SCALER Plan of Treatment Not on file Care Teams Medical Coding Specialist Relationship Specialty Start Date End Date Cori Ashton, PA-C PCP - General Physician [employer] Machine Operator 05/05/18
--- OUTSIDE RECORDS SUMMARY | 2024-05-27 08:13 | XMS_ITS | Clinical Summary ---
Author Organization [facility] [address] [facility] Address [address] [place] [address] Care Team Providers Care Accounting Auditor Name Role Phone Cori Ashton Unavailable [phone] Cori Ashton Primary Care Provider [phone] Allergies No known active allergies Medications FIBER, [...] 04/13/2024 Assessment & Plan (04/13/2024 10:12 PM COFFEE PLANTATION WORKER): Check labs Colon cancer screening 04/13/2024 Assessment & Plan (04/13/2024 10:12 PM COFFEE PLANTATION WORKER): Patient is due for colon cancer screening. Will make referral for colonoscopy. Prefers Dr. Stiles at [facility] Prostate cancer screening 04/13/2024 Assessment & Plan (04/13/2024 10:12 PM COFFEE PLANTATION WORKER): Check labs BMI 24.0-24.9, adult 04/07/2023 Assessment & Plan (04/08/2024 3:28 PM COFFEE PLANTATION WORKER): Weight/BMI is in healthy range. Continue healthy lifestyle to maintain. Assessment & Plan (04/07/2023 9:34 PM COFFEE PLANTATION WORKER): Weight/BMI is in healthy range. Continue healthy lifestyle to maintain. Screening for diabetes mellitus 09/26/2021 Assessment & Plan (04/07/2023 9:35 PM COFFEE PLANTATION WORKER): Check labs Assessment & Plan (09/26/2021 9:45 AM CDT): Check labs Fatigue 09/24/2020 Assessment & Plan (04/13/2024 10:11 PM COFFEE PLANTATION WORKER): Probably multifactorial. Check labs and followup to re-evaluate Assessment & Plan (04/07/2023 9:35 PM COFFEE PLANTATION WORKER): Probably multifactorial. Check labs and followup to re-evaluate Assessment & Plan (09/26/2021 9:43 AM CDT): Probably multifactorial. Check labs and followup to re-evaluate Assessment & Plan (09/24/2020 10:50 AM CDT): Probably multifactorial. Check labs and followup to re-evaluate Annual physical exam 09/22/2020 Assessment & Plan (04/13/2024 10:11 PM COFFEE PLANTATION WORKER): Encouraged healthy lifestyle, good nutrition and exercise. Encouraged Calcium and Vitamin D and weight bearing exercise for bone health. Reviewed immunizations Reviewed age appropirate screenings. Assessment & Plan (04/07/2023 9:34 PM COFFEE PLANTATION WORKER): Encouraged healthy lifestyle, good nutrition and exercise. [...] 11/23/2019 Assessment & Plan (02/03/2020 9:50 AM COFFEE PLANTATION WORKER): Patient has undergone MR angiogram of the [...] 11/23/2019 Assessment & Plan (04/13/2024 10:11 PM COFFEE PLANTATION WORKER): Depression symptoms are stable with the Cymbalta. Continue 30 mg daily Assessment & Plan (04/07/2023 9:34 PM COFFEE PLANTATION WORKER): Depression stable with Cymbalta 30 Assessment & [...] as well. Encouraged and advised referral to promotions representative and psychologist as it is obsessive. He [...] lifting background. Provided the names of some summer analyst in the [place] area so that he can call and [...] 01/31/2016 Assessment & Plan (04/13/2024 10:13 PM COFFEE PLANTATION WORKER): Persistent constipation symptoms. He has tried increasing [...] with [employer] in [place] in a week. He will be able [...] 07/11/2015 Assessment & Plan (04/13/2024 10:11 PM COFFEE PLANTATION WORKER): Encouraged patient to follow low fat/low chol diet like the Mediterranean diet. Increase good fats in the diet. Increase exercise. Monitor labs as needed. Assessment & Plan (04/07/2023 9:35 PM COFFEE PLANTATION WORKER): Encouraged patient to follow low fat/low chol [...] 07/11/2015 Assessment & Plan (04/13/2024 10:11 PM COFFEE PLANTATION WORKER): Supplement Assessment & Plan (04/07/2023 9:35 PM COFFEE PLANTATION WORKER): Supplement Anxiety 06/23/2015 GERD (gastroesophageal reflux disease) 6 Assessment & Plan (04/13/2024 10:14 PM COFFEE PLANTATION WORKER): Continue PPI p.r.n. Resolved Problems Problem Noted [...] Department Care Team Description 04/08/2024 3:30 PM COFFEE PLANTATION WORKER Office Visit 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 Not on file Not on file Obstetrics History Last Filed Vital Signs Vital Sign Reading Time Taken Comments Blood Pressure 126/80 04/08/2024 3:25 PM COFFEE PLANTATION WORKER Pulse 64 04/08/2024 3:25 PM COFFEE PLANTATION WORKER Temperature 36.3 C (97.4 F) 04/08/2024 3:25 PM COFFEE PLANTATION WORKER Respiratory Rate 20 12/11/2019 8:01 AM CDT Oxygen Saturation 98% 04/08/2024 3:25 PM COFFEE PLANTATION WORKER Inhaled Oxygen Concentration - - Weight 70.7 kg (155 lb 12.8 oz) 04/08/2024 3:25 PM COFFEE PLANTATION WORKER Height 170.2 cm (5' 7 ) 04/08/2024 3:25 PM COFFEE PLANTATION WORKER Body Mass Index 24.4 04/08/2024 3:25 PM COFFEE PLANTATION WORKER Plan of Treatment Health Maintenance Due Date [...] patient's age to complete this topic Insurance [facility] [employer] [place] Care Teams Accounting Auditor Relationship Specialty Start Date End Date Cori Ashton PA [address] [place] [address] PCP - General Internal Medicine 05/03/20 Cori Ashton PA [address] [place] [address] Internal Medicine 12/17/19
--- OUTSIDE RECORDS SUMMARY | 2024-05-27 08:13 | XMS_ITS | Clinical Summary ---
Author Organization [facility] Address [address] [place] [id number] Care Team Providers Care Ecg Technician Name Role Phone Unavailable Primary Care Provider [...]
== END 2024-05-27 08:16 | disposition home or self-care (01) ==
LOC: ANHED 08:06
PROVIDERS: Emergency Provider Emergency Medicine
DX: T16.2XXA Foreign body in left ear, initial encounter (principal); W44.G1XA Audio device entering into or through a natural orifice, initial encounter
CPT/HCPCS: 69200; 99282